=== PATIENT | female | born 1965 | race Caucasian/White ===

== ENCOUNTER → 2018-07-31 | Outpatient (CLI) | payer OTHER | END | disposition home or self-care (01) | LOC: LAB 13:40 → LAB SHORT 13:40 | PROVIDERS: Nurse Practitioner | DX: Z01.419 Encounter for gynecological examination (general) (routine) without abnormal findings (principal) | CPT/HCPCS: G0145 ==

== ENCOUNTER → 2023-04-24 | Outpatient (CLI) | payer OTHER ==
[2023-04-25 15:09] LABS: HPV 16 Negative (Negative); HPV 18 Negative (Negative); HPV OTHER HR TYPES Negative (Negative)
== END | disposition home or self-care (01) ==
LOC: LAB 17:32 → LAB SHORT 17:32
PROVIDERS: Family Medicine
DX: Z12.4 Encounter for screening for malignant neoplasm of cervix (principal)
CPT/HCPCS: 87624; G0145

== ENCOUNTER 2025-10-21 09:21 | Day surgery (SDC) | payer OTHER ==
[~2025-10-21] VITALS: Ht 160 cm; Wt 75.3 kg
[2025-10-21] MEDS ORDERED: CeFAZolin Sodium 2,000 MG VIAL ONE (09:30)
[2025-10-21] MEDS ORDERED: ESTRADIOL1 M1 (09:48)
[2025-10-21] MEDS ORDERED: FLUTICASONE PRO16 GM (09:48)
[2025-10-21] MEDS ORDERED: CELEBREX200 MG (09:48)
[2025-10-21] MEDS ORDERED: ZYRTEC10 M2 (09:49)
[2025-10-21] MEDS ORDERED: SUPER B-50 COM1 EACH (09:50)
[2025-10-21] MEDS ORDERED: MAGNESIUM GLU27.5 MG (09:50)
[2025-10-21] MEDS ORDERED: VITAMIN D325 MC3 (09:50)
[2025-10-21] MEDS ORDERED: FentaNYL Citrate 50 MCG/ML 2 ML Injection ONE ×2 (09:57→11:34)
[2025-10-21] MEDS ORDERED: Midazolam HCl 1MG / ML 2ML Vial ONE (09:58)
--- NOTE | 2025-10-21 10:23 | NUR ---
10/21/25 1023 Conchita Whitman AXILLARY BLOCK OF THE RIGHT ARM DONE IN PREOP BLOCK T/O AT 1014 START:1017 END:1020
[2025-10-21] MEDS ORDERED: Dexamethasone Sod Phos 10 MG/ML 1ML VIAL ONE (10:55)
[2025-10-21] MEDS ORDERED: Ondansetron HCl 2 MG / ML 2ML Vial ONE (10:55)
[2025-10-21] MEDS ORDERED: OxyCODONE 5 mg/Acetamin 325 mg TABLET ONE (11:34)
[2025-10-21 12:08] VITALS: BP 130/78
--- NOTE | 2025-10-21 12:47 | NUR ---
10/21/25 1247 Mir Sahu PT REPORTS A MANAGEABLE LEVEL OF PAIN AND DENIES NAUSEA. PT AGREEABLE TO D/C HOME WITH FRIEND.
== END 2025-10-21 12:45 | disposition home or self-care (01) ==
LOC: ORSCSDS 09:21
PROVIDERS: Orthopaedic Surgery
PROC: 0LN50ZZ Release Right Lower Arm and Wrist Tendon, Open Approach (ICD-10-PCS; principal; 2025-10-21 10:30)
PROC: 0RQS0ZZ Repair Right Carpometacarpal Joint, Open Approach (ICD-10-PCS; principal; 2025-10-21 10:30)
DX: M18.11 Unilateral primary osteoarthritis of first carpometacarpal joint, right hand (principal); M65.4 Radial styloid tenosynovitis [de Quervain]; Z79.899 Other long term (current) drug therapy
CPT/HCPCS: A9270; C1713; J0690; J1100; J2250; J2405; J2704; J3010; J7120